=== PATIENT | female | born 1980 | race Caucasian/White ===

== ENCOUNTER 2018-02-05 20:18 | Emergency (ER) | payer OTHER ==
[~2018-02-05] VITALS: Ht 162.6 cm; Wt 65.8 kg
[~2018-02-05 20:18] MED LIST: AZIT250 PO; BUSP10 PO; CITA20 PO; CLON1 PO; Crutch1 EACH MISC; DIAZ5 PO; GABA300 PO; GRALISE1 EACH PO; HYDHCL25 PO; INDO50 PO; NORT10 PO; OXYACE5T PO; Percocet 5-3251 EACH PO; VENL75ER PO
[2018-02-05] MEDS ORDERED: CYCL10 PO (21:26)
== END 2018-02-05 21:40 | disposition home or self-care (01) ==
LOC: ER 20:18
DX: M53.3 Sacrococcygeal disorders, not elsewhere classified (principal); F17.210 Nicotine dependence, cigarettes, uncomplicated; Z88.1 Allergy status to other antibiotic agents; Z88.5 Allergy status to narcotic agent
CPT/HCPCS: 73502; 96372; 99283; J1885

== ENCOUNTER → 2018-03-09 | Outpatient (CLI) | payer OTHER ==
[~2018-03-09] MED LIST changes: +CYCL10 PO
[2018-04-02 14:51] LABS: CHLAMYDIA TRACHOMATIS, NAA Negative (Negative); NEISSERIA GONORRHOEAE, NAA Negative (Negative)
== END ==
LOC: LAB 15:21 → LAB SHORT 15:21
PROVIDERS: Obstetrics & Gynecology
DX: Z01.419 Encounter for gynecological examination (general) (routine) without abnormal findings (principal); Z11.3 Encounter for screening for infections with a predominantly sexual mode of transmission
CPT/HCPCS: 87491; 87591; 87624; G0123

== ENCOUNTER 2019-01-08 01:37 | Inpatient (IN) | payer BC, OTHER ==
[~2019-01-08] VITALS: Ht 160 cm; Wt 72.0 kg
[2019-01-08] MEDS ORDERED: MELA3 PO (02:09)
[2019-01-08 02:16] LABS: BASOPHILS ABSOLUTE AUTO 0.05 K/mm3 (0.00-0.23); BASOPHILS PERCENT AUTO 0 % (0-2); EOSINOPHILS ABSOLUTE AUTO 0.12 K/mm3 (0.00-0.68); EOSINOPHILS PERCENT AUTO 1 % (0-6); Hematocrit 44.1 % (33.0-51.0); Hemoglobin 14.9 g/dL (11.5-16.0); IMMATURE GRAN ABSOLUTE AUTO 0.07 K/mm3 (0.00-0.10); IMMATURE GRAN PERCENT AUTO 0 % (0-1); LYMPHOCYTES ABSOLUTE AUTO 2.41 K/mm3 (0.84-5.20); LYMPHOCYTES PERCENT AUTO 12 % (21-46); MONOCYTES ABSOLUTE AUTO 0.63 K/mm3 (0.16-1.47); MONOCYTES PERCENT AUTO 3 % (4-13); Mean Corpuscular HGB 33.3 pg (26.0-34.0); Mean Corpuscular HGB Conc 33.8 g/dL (31.5-36.5); Mean Corpuscular Volume 99 fL (80-100); Mean Platelet Volume 10.3 fL (9.1-12.4); NEUTROPHILS ABSOLUTE AUTO 16.18 K/mm3 (1.96-9.15); NEUTROPHILS PERCENT AUTO 83 % (41-73); Platelet Count 372 K/mm3 (150-400); RDW Coefficient Variation 11.7 % (11.7-14.2); RDW Standard Deviation 43.1 fL (35.1-46.3); Red Blood Cell Count 4.47 M/mm3 (3.80-5.20); White Blood Cell Count 19.46 K/mm3 (4.00-11.30)
[2019-01-08 02:32] LABS: Alanine Aminotransfer (ALT/SGP 18 U/L (12-78); Albumin, Blood 4.1 g/dL (3.4-5.0); Albumin/Globulin Ratio 1.2 (0.8-1.8); Alk Phos 82 U/L (50-136); Anion Gap 6 mmol/L (6-16); Aspartate Aminotrans (AST/SGOT 13 U/L (12-37); Bilirubin, Total 0.2 mg/dL (0.1-1.0); Blood Urea Nitrogen 11 mg/dL (8-24); Bun/Creatinine Ratio 14.2 (12.0-20.0); CO2, Blood 27 mmol/L (21-32); Chloride, Blood 108 mmol/L (98-108); Creatinine, Blood 0.78 mg/dL (0.40-1.00); Globulin, Blood 3.4 g/dL (2.2-4.0); Glomerular Filtration Rate >60 (60-); Glucose, Blood 123 mg/dL (70-99); Potassium, Blood 4.3 mmol/L (3.5-5.5); Sodium, Blood 141 mmol/L (136-145); Total Protein, Blood 7.5 g/dL (6.4-8.2)
[2019-01-08 03:06] LABS: Source, Urine Clean Catch
[2019-01-08 03:08] LABS: Bilirubin, Urine Neg (Neg); Blood, Urine Neg (Neg); Glucose Qualitative, Urine Neg (Neg); Ketones, Urine 1+ (Neg); Leukocyte Esterase, Urine 1+ (Neg); Nitrite, Urine Neg (Neg); Protein, Urine 1+ (Neg); Urobilinogen, Urine 1+ (Normal); pH, Urine 6.5 (5.0-8.0)
[2019-01-08 03:16] LABS: Appearance, Urine Hazy (Clear); Color, Urine Yellow (P-Yellow)
[2019-01-08 03:17] LABS: Amorphous Mod (0-Heavy); Bacteria Few /hpf; Mucus Light (0-Heavy); Red Blood Cells, Urine Not Seen /hpf (0-2); Squamous Epithelial Cells Rare /hpf (Few); White Blood Cells, Urine 0-2 /hpf (0-5)
--- NOTE | 2019-01-08 07:32 | NUR ---
PT ADMITTED FROM ER FOR SBO. A&O X4. VS WNL UPON ARRIVAL. PT REPORTS ADEQUATE PAIN CONTROL AT THIS TIME. DENIES N/V. IND IN ROOM. INSTRUCTED ON HOW TO USE CALL LIGHT. WILL CTM AND GIVE REPORT TO ONCOMING DAY RN.
[2019-01-08] MEDS ORDERED: THRIVE PO (08:47)
[2019-01-08] MEDS ORDERED: [UNRECOGNIZED DRUG - OTHER] TOP (08:48)
--- NOTE | 2019-01-08 15:25 | NUR ---
PT REPORTS WILL WEAR PAS AT NIGHT, REPORTS UP FREQUENTLY T/O DAYTIME.
--- NOTE | 2019-01-08 16:58 | NUR ---
SHIFT SUMMARY PT TOLERATING C.L. DIET. "I FEEL MY TUMMY RUMBLING A LOT". PT REPORTS PASSING GAS THIS AFTERNOON. PT UP IND. FAMILY IN/OUT OF ROOM. PT AMBULATING IN HALLWAYS TODAY. DISCUSSED SMOKING CESSATION.
--- NOTE | 2019-01-09 04:13 | NUR ---
SHIFT SUMMARY: PT HAS DONE WELL THIS SHIFT. C/O OCC PAIN. GIVEN 25 MCG OF FENTANYL PER EMAR. JUSTINE CLR LIQ DIET. DENIES N/V. REPORTS PASSING SOME GAS. NO BM. PT AMBULATING FREQUENTLY. OUTSIDE TO SMOKE SEVERAL TIMES. EDUCATED ON AFFECTS OF SMOKING. AT BEDSIDE.
[2019-01-09 05:41] LABS: BASOPHILS ABSOLUTE AUTO 0.04 K/mm3 (0.00-0.23); BASOPHILS PERCENT AUTO 1 % (0-2); EOSINOPHILS ABSOLUTE AUTO 0.26 K/mm3 (0.00-0.68); EOSINOPHILS PERCENT AUTO 3 % (0-6); Hematocrit 34.9 % (33.0-51.0); Hemoglobin 11.7 g/dL (11.5-16.0); IMMATURE GRAN ABSOLUTE AUTO 0.01 K/mm3 (0.00-0.10); IMMATURE GRAN PERCENT AUTO 0 % (0-1); LYMPHOCYTES ABSOLUTE AUTO 4.53 K/mm3 (0.84-5.20); LYMPHOCYTES PERCENT AUTO 57 % (21-46); MONOCYTES ABSOLUTE AUTO 0.56 K/mm3 (0.16-1.47); MONOCYTES PERCENT AUTO 7 % (4-13); Mean Corpuscular HGB 33.3 pg (26.0-34.0); Mean Corpuscular HGB Conc 33.5 g/dL (31.5-36.5); Mean Corpuscular Volume 99 fL (80-100); Mean Platelet Volume 10.2 fL (9.1-12.4); NEUTROPHILS PERCENT AUTO 33 % (41-73); Platelet Count 277 K/mm3 (150-400); RDW Coefficient Variation 12.1 % (11.7-14.2); RDW Standard Deviation 44.1 fL (35.1-46.3); Red Blood Cell Count 3.51 M/mm3 (3.80-5.20)
[2019-01-09 06:04] LABS: Anion Gap 1 mmol/L (6-16); Blood Urea Nitrogen 7 mg/dL (8-24); Bun/Creatinine Ratio 10.4 (12.0-20.0); CO2, Blood 27 mmol/L (21-32); Calcium, Blood 8.1 mg/dL (8.5-10.1); Chloride, Blood 116 mmol/L (98-108); Creatinine, Blood 0.67 mg/dL (0.40-1.00); Glomerular Filtration Rate >60 (60-); Glucose, Blood 75 mg/dL (70-99); Potassium, Blood 4.4 mmol/L (3.5-5.5); Sodium, Blood 144 mmol/L (136-145)
--- NOTE | 2019-01-09 12:12 | NUR ---
DR MORALES BEEN TO SEE PT. DISCUSSED PT'S STATUS.
--- NOTE | 2019-01-09 19:11 | NUR ---
SHIFT SUMMARY PT TOLERATING C.L. PT BEEN UP IND. WALKING FREQUENTLY. PT REPORTS "MY STOMACH FEELS FULL". PT BEEN MED UPON REQ. PT BEEN ASSISTED WITH ADL'S PRN. PT FAMILY IN/OUT OF ROOM.
--- NOTE | 2019-01-10 07:22 | NUR ---
SHIFT SUMMARY: MILD INCREASE IN ABD DISTENTION NOTED. CRAMPING PAIN REPORTED. MANAGED WITH FENTANYL PER EMAR. JUSTINE 50 MCG. PT REPORTS PASSING VERY SML AMTS OF GAS. NO BM OVER NIGHT. DENIES N/V. MINIMAL PO INTAKE. AMBULATING FREQ. HYPERACTIVE BT IN ALL QUADS.
--- NOTE | 2019-01-10 19:52 | NUR ---
SHIFT SUMMARY PAIN HAS BEEN MANAGED WITH IV PAIN MEDICATION THIS SHIFT. PT HAS BEEN AMBULATING FREQUENTLY. SHE IS INDEPENDENT IN THE ROOM. PT DENIES PASSING FLATUS THIS SHIFT. EMESIS X1. REPORT GIVEN TO MELQUIADES ELLIS.
--- NOTE | 2019-01-11 05:17 | NUR ---
NO SIG CHANGES DURING NIGHT. HAS BEEN TOLERATING PO, DENIES ANY N/V. NO FLATUS OR STOOL BUT BT+. PT HAS BEEN UP AMBULATING IN HALLWAYS. PAIN IS BETTER MANAGED WITH IV DILAUDID. POSSIBLE DC HOME TODAY.
--- NOTE | 2019-01-11 10:41 | NUR ---
PT C/O CONTINUED GENERALIZED ABDOMINAL PAIN/CRAMPING AND PELVIC PAIN. STATES THAT DILAUDID SEEMS TO "WORK THE BEST AND LASTS LONGER". INDEPENDENTLY AMBULATING IN HALLWAY AND OUT TO SMOKE. TOLERATING SMALL AMTS FULL LIQUID.
--- NOTE | 2019-01-12 05:22 | NUR ---
NO SIG CHANGES DURING NIGHT. WAS MEDICATED ONLY ONCE FOR PAIN AND ZOFRAN PO WAS ONLY GIVEN TO PREVENT NAUSEA FROM MIRALAX. PLAN FOR SMALL BOWEL FOLLOW THROUGH TODAY. PT IS HOPEFUL TO BE ABLE TO GO HOME.
--- NOTE | 2019-01-12 08:59 | NUR ---
radiology to radiology per wheelchair
--- NOTE | 2019-01-12 10:47 | NUR ---
PT RETURNS FROM IMAGING. GOES OUT FOR A WALK.
--- NOTE | 2019-01-12 11:05 | NUR ---
return to room returned from radiology
[2019-01-12] MEDS ORDERED: MIRALAX119 GM PO (17:29)
--- NOTE | 2019-01-12 18:07 | NUR ---
discharge discharge instructions reviewed with patient and patient questions answered. patient dischared home
--- NOTE | 2019-01-12 18:07 | NUR ---
stools patient had liquid pink tinged stool, spoke with dr whelan regarding stool color
== END 2019-01-12 18:31 | disposition home or self-care (01) | DRG 390 ==
LOC: ER 01:37 → ERHOLD 05:49 → SURS 05:49
PROVIDERS: Emergency Medicine; ADMIT Surgery
DX: K56.609 Unspecified intestinal obstruction, unspecified as to partial versus complete obstruction (principal); G43.909 Migraine, unspecified, not intractable, without status migrainosus; F17.210 Nicotine dependence, cigarettes, uncomplicated; F41.8 Other specified anxiety disorders; K59.09 Other constipation
CPT/HCPCS: 36415; 74177; 74250; 80048; 80053; 81001; 81025; 83690; 85025; 87086; 94762; 96361; 96374-59; 96375; 96376; 99285-25; J1170; J1885; J2270; J2405; J3010; J7030; J7120; Q9967

== ENCOUNTER 2019-03-28 19:12 | Emergency (ER) | payer BC, OTHER ==
[~2019-03-28] VITALS: Ht 162.6 cm; Wt 68.0 kg
[~2019-03-28 19:12] MED LIST changes: +MELA3 PO; +MIRALAX119 GM PO; +THRIVE PO; +[UNRECOGNIZED DRUG - OTHER] TOP
[2019-03-31] MEDS ORDERED: IBU800 MG PO (08:21)
[2019-03-31] MEDS ORDERED: MELATONIN10 M2 PO (08:21)
[2019-03-31] MEDS ORDERED: BUSP10 PO (08:21)
[2019-03-31] MEDS ORDERED: MIRALAX17 GM PO (08:21)
[2019-03-31] MEDS ORDERED: VOLTAREN100 GM TOP (08:22)
[2019-03-31] MEDS ORDERED: MIRENA1 EACH VAG (08:22)
[2019-03-31] MEDS ORDERED: Motion Sickness25 M1 PO (08:22)
[2019-06-23] MEDS ORDERED: Celexa10 MG PO (09:54)
[2019-06-23] MEDS ORDERED: HORIZANT300 MG PO (09:54)
== END 2019-03-28 22:50 | disposition home or self-care (01) ==
LOC: ER 19:12
DX: M79.662 Pain in left lower leg (principal); Z88.0 Allergy status to penicillin; Z88.8 Allergy status to other drugs, medicaments and biological substances; Z79.899 Other long term (current) drug therapy; G43.909 Migraine, unspecified, not intractable, without status migrainosus; F17.210 Nicotine dependence, cigarettes, uncomplicated
CPT/HCPCS: 73590; 93971; 96372-59; 96374; 99284-25; J1170; J1885

== ENCOUNTER 2019-04-07 08:35 | Day surgery (SDC) | payer BC, OTHER ==
[~2019-04-07] VITALS: Ht 162.6 cm; Wt 68.0 kg
[~2019-04-07 08:35] MED LIST changes: +IBU800 MG PO; +MELATONIN10 M2 PO; +MIRALAX17 GM PO; +MIRENA1 EACH VAG; +Motion Sickness25 M1 PO; +VOLTAREN100 GM TOP
[2019-06-23] MEDS ORDERED: HORIZANT300 MG PO (09:54)
[2019-06-23] MEDS ORDERED: Celexa10 MG PO (09:54)
== END 2019-04-07 10:40 | disposition home or self-care (01) ==
LOC: ORSCSDS 08:35
PROVIDERS: Surgery
PROC: 0DJD8ZZ Inspection of Lower Intestinal Tract, Via Natural or Artificial Opening Endoscopic (ICD-10-PCS; principal; 2019-04-07 09:45)
DX: Z12.11 Encounter for screening for malignant neoplasm of colon (principal); Z80.0 Family history of malignant neoplasm of digestive organs; F41.8 Other specified anxiety disorders; F17.210 Nicotine dependence, cigarettes, uncomplicated; Z79.899 Other long term (current) drug therapy
CPT/HCPCS: J2704; J7120

== ENCOUNTER → 2019-06-09 | Outpatient (CLI) | payer BC ==
[~2019-06-09] MED LIST changes: +Celexa10 MG PO; +HORIZANT300 MG PO; +Ultram50 MG PO
[2019-06-10 16:06] LABS: HPV 16 Negative (Negative); HPV 18 Negative (Negative); HPV OTHER HR TYPES Negative (Negative)
== END | disposition home or self-care (01) ==
LOC: LAB 12:21 → LAB SHORT 12:21
PROVIDERS: Obstetrics & Gynecology
DX: Z01.419 Encounter for gynecological examination (general) (routine) without abnormal findings (principal)
CPT/HCPCS: 87624; G0123

== ENCOUNTER 2019-07-01 08:30 | Day surgery (SDC) | payer BC, OTHER ==
[~2019-07-01] VITALS: Ht 162.6 cm; Wt 69.8 kg
[~2019-07-01 08:30] MED LIST changes: -Ultram50 MG PO
== END 2019-07-01 13:58 | disposition home or self-care (01) ==
LOC: ORSCSDS 08:30
PROVIDERS: Orthopaedic Surgery
PROC: 0QPH04Z Removal of Internal Fixation Device from Left Tibia, Open Approach (ICD-10-PCS; principal; 2019-07-01 10:00)
DX: T84.84XA Pain due to internal orthopedic prosthetic devices, implants and grafts, initial encounter (principal); Z96.9 Presence of functional implant, unspecified; F17.210 Nicotine dependence, cigarettes, uncomplicated; Z79.899 Other long term (current) drug therapy
CPT/HCPCS: A9270-GY; C1769; J1100; J1885; J2250; J2370; J2405; J2704; J2765; J3010; J3370; J7120

== ENCOUNTER 2019-07-16 14:24 | Emergency (ER) | payer BC, OTHER ==
[~2019-07-16] VITALS: Ht 165.1 cm; Wt 68.0 kg
[2019-07-16] MEDS ORDERED: Ultram50 MG PO (15:55)
== END 2019-07-16 15:58 | disposition home or self-care (01) ==
LOC: ER 14:24
DX: M96.840 Postprocedural hematoma of a musculoskeletal structure following a musculoskeletal system procedure (principal); F17.210 Nicotine dependence, cigarettes, uncomplicated; Z88.1 Allergy status to other antibiotic agents; Z88.8 Allergy status to other drugs, medicaments and biological substances; Z79.899 Other long term (current) drug therapy
CPT/HCPCS: 93971; 99283-25

== ENCOUNTER → 2020-06-21 | Outpatient (CLI) | payer BC, OTHER ==
[~2020-06-21] MED LIST changes: +Ultram50 MG PO
== END | disposition home or self-care (01) ==
LOC: LAB SHORT 13:34 → PLD 13:34
DX: Z01.419 Encounter for gynecological examination (general) (routine) without abnormal findings (principal); N92.1 Excessive and frequent menstruation with irregular cycle
CPT/HCPCS: 88305

== ENCOUNTER → 2020-06-21 | Outpatient (CLI) | payer BC, OTHER ==
[2020-06-22 14:10] LABS: HPV 16 Negative (Negative); HPV 18 Negative (Negative); HPV OTHER HR TYPES Negative (Negative)
== END ==
LOC: LAB 11:00 → LAB SHORT 11:00
PROVIDERS: Obstetrics & Gynecology
DX: Z01.419 Encounter for gynecological examination (general) (routine) without abnormal findings (principal)
CPT/HCPCS: 87624; G0123

== ENCOUNTER → 2021-05-12 | Outpatient (CLI) | payer BC, OTHER ==
[~2021-05-12] MED LIST changes: +CODACE30 PO; +DOCU100 PO; +IBUP800 PO; +PSEU120ER PO; +ROXICODONE5 MG PO; +SHAROBEL0.35 MG PO
[2021-05-14 17:36] LABS: CORONAVIRUS (COVID19) CSH-NRL Negative (Negative)
== END ==
LOC: LAB SHORT 15:30 → LAB 15:30
PROVIDERS: Physician Assistant Medical
DX: Z20.822 Contact with and (suspected) exposure to COVID-19 (principal); Z88.8 Allergy status to other drugs, medicaments and biological substances; Z88.1 Allergy status to other antibiotic agents; Z88.2 Allergy status to sulfonamides
CPT/HCPCS: U0003

== ENCOUNTER 2022-05-12 10:38 | Day surgery (SDC) | payer BC ==
[~2022-05-12] VITALS: Ht 165.1 cm; Wt 80.0 kg
[2022-05-12] MEDS ORDERED: CYMBALTA20 M1 PO (10:56)
[2022-05-12] MEDS ORDERED: ESTRADIOL0.5 MG PO (11:00)
[2022-05-12] MEDS ORDERED: TRAM50 PO (11:01)
[2022-05-12] MEDS ORDERED: GABA100 PO (11:01)
--- NOTE | 2022-05-12 12:35 | NUR ---
1105 History, Chart, Medications and Allergies reviewed before start of procedure.Patient confirms NPO status and agrees with scheduled surgery. Lungs clear T/O to Auscultation. Pre-Op teaching done. Pt verbalizes understanding.
--- NOTE | 2022-05-12 15:20 | NUR ---
Discharge instructions reviewed with patient. Patient verbalizes understanding. Copy given to patient to take home. Patient States Post-Procedure ride home has been arranged. Dressing to procedure site clean, dry, intact with no visible drainage, swelling, erythema or bruising noted.
== END 2022-05-13 23:49 | disposition home or self-care (01) ==
LOC: ORSCMMR 10:38 → ORD 12:00 → ORSCMMR 05-13 23:49
PROVIDERS: Orthopaedic Surgery
PROC: 01N40ZZ Release Ulnar Nerve, Open Approach (ICD-10-PCS; principal; 2022-05-12 12:00)
PROC: 01N50ZZ Release Median Nerve, Open Approach (ICD-10-PCS; principal; 2022-05-12 12:00)
DX: G56.03 Carpal tunnel syndrome, bilateral upper limbs (principal); G56.21 Lesion of ulnar nerve, right upper limb; Z79.899 Other long term (current) drug therapy
CPT/HCPCS: A9270; J0690; J1100; J1885; J2250; J2405; J2704; J2765; J3010; J7120

== ENCOUNTER → 2023-06-26 | Outpatient (CLI) | payer SELFPAY ==
[~2023-06-26] MED LIST changes: +CYMBALTA20 M1 PO; +ESTRADIOL0.5 MG PO; +GABA100 PO; +TRAM50 PO
[2023-06-26 17:51] LABS: BASOPHILS ABSOLUTE AUTO 0.07 K/mm3 (0.00-0.23); BASOPHILS PERCENT AUTO 1 % (0-2); EOSINOPHILS PERCENT AUTO 2 % (0-6); Hematocrit 40.9 % (33.0-51.0); Hemoglobin 14.1 g/dL (11.5-16.0); IMMATURE GRAN ABSOLUTE AUTO 0.01 K/mm3 (0.00-0.10); IMMATURE GRAN PERCENT AUTO 0 % (0-1); LYMPHOCYTES ABSOLUTE AUTO 3.21 K/mm3 (0.84-5.20); LYMPHOCYTES PERCENT AUTO 39 % (21-46); MONOCYTES PERCENT AUTO 7 % (4-13); Mean Corpuscular HGB Conc 34.5 g/dL (31.5-36.5); Mean Corpuscular Volume 96 fL (80-100); Mean Platelet Volume 10.8 fL (9.1-12.4); NEUTROPHILS ABSOLUTE AUTO 4.09 K/mm3 (1.96-9.15); NEUTROPHILS PERCENT AUTO 50 % (41-73); Platelet Count 392 K/mm3 (150-400); RDW Coefficient Variation 12.4 % (11.7-14.2); RDW Standard Deviation 43.1 fL (35.1-46.3); Red Blood Cell Count 4.27 M/mm3 (3.80-5.20); White Blood Cell Count 8.18 K/mm3 (4.00-11.30)
[2023-06-26 18:02] LABS: Albumin, Blood 4.5 g/dL (3.4-5.0); Albumin/Globulin Ratio 1.2 (0.8-1.8); Bilirubin, Total 0.4 mg/dL (0.1-1.0); Bun/Creatinine Ratio 7.6 (12.0-20.0); Calcium, Blood 9.7 mg/dL (8.5-10.1); Creatinine, Blood 0.92 mg/dL (0.40-1.00); Globulin, Blood 3.6 g/dL (2.2-4.0); Potassium, Blood 3.4 mmol/L (3.5-5.5); Thyroid Stimulating Hormone 1.6 uIU/mL (0.360-4.800); Total Protein, Blood 8.1 g/dL (6.4-8.2)
== END | disposition home or self-care (01) ==
LOC: LAB SHORT 17:04 → LAB 17:04
PROVIDERS: Advanced Practice Midwife
DX: R53.83 Other fatigue (principal)
CPT/HCPCS: 80053; 82306; 83036; 84443; 85025

== ENCOUNTER → 2023-08-19 | Outpatient (CLI) | payer OTHER ==
[2023-08-19 11:10] LABS: Bun/Creatinine Ratio 9.6 (12.0-20.0); Calcium, Blood 9.2 mg/dL (8.5-10.1); Creatinine, Blood 0.83 mg/dL (0.40-1.00); Potassium, Blood 4.2 mmol/L (3.5-5.5)
[2023-08-19 11:57] LABS: BASOPHILS ABSOLUTE AUTO 0.05 K/mm3 (0.00-0.23); BASOPHILS PERCENT AUTO 1 % (0-2); EOSINOPHILS ABSOLUTE AUTO 0.08 K/mm3 (0.00-0.68); EOSINOPHILS PERCENT AUTO 1 % (0-6); Hematocrit 40.7 % (33.0-51.0); IMMATURE GRAN ABSOLUTE AUTO 0.02 K/mm3 (0.00-0.10); IMMATURE GRAN PERCENT AUTO 0 % (0-1); LYMPHOCYTES ABSOLUTE AUTO 3.61 K/mm3 (0.84-5.20); LYMPHOCYTES PERCENT AUTO 39 % (21-46); MONOCYTES ABSOLUTE AUTO 0.41 K/mm3 (0.16-1.47); MONOCYTES PERCENT AUTO 4 % (4-13); Mean Corpuscular HGB 32.8 pg (26.0-34.0); Mean Corpuscular HGB Conc 34.4 g/dL (31.5-36.5); Mean Corpuscular Volume 95 fL (80-100); Mean Platelet Volume 10.2 fL (9.1-12.4); NEUTROPHILS ABSOLUTE AUTO 5.13 K/mm3 (1.96-9.15); NEUTROPHILS PERCENT AUTO 55 % (41-73); Platelet Count 402 K/mm3 (150-400); RDW Coefficient Variation 12.6 % (11.7-14.2); Red Blood Cell Count 4.27 M/mm3 (3.80-5.20)
== END | disposition home or self-care (01) ==
LOC: LAB SHORT 10:50 → LAB 10:50
PROVIDERS: Physician Assistant Surgical
DX: N30.00 Acute cystitis without hematuria (principal); R10.31 Right lower quadrant pain
CPT/HCPCS: 80048; 85025; 87086

== ENCOUNTER 2025-01-24 13:01 | Day surgery (SDC) | payer OTHER ==
[~2025-01-24] VITALS: Ht 165.1 cm; Wt 79.8 kg
[~2025-01-24 13:01] MED LIST changes: +Lactated Ringer's 1,000 ML IV ONE; +propofoL 40 ML IV ONE
[2025-01-24] MEDS ORDERED: FLUO10 (13:17)
[2025-01-24] MEDS ORDERED: Lactated Ringer's 1,000 ML IV ONE (14:09)
[2025-01-24] MEDS ORDERED: propofoL 20 ML IV ONE (15:07)
[2025-01-24] MEDS ORDERED: Ondansetron HCl 2 MG / ML 2ML Vial ONE (15:19)
--- NOTE | 2025-01-24 15:25 | NUR ---
01/24/25 1525 Patricia West PT. VERBALIZE HE HEMMORHOIDS WERE BOTHERING HER FROM THE PREP
--- NOTE | 2025-01-24 15:55 | NUR ---
01/24/25 1555 BrettPatricia S PT. STARTED TO C/O NAUSEA WHEN MOVING BED FROM ENDO ROOM TO DC. PT. WAS GIVEN ZOFRAN PER DR. DIAS. PT. HAD VERBALIZED THAT SHE WASN'T SURE IF SHE WAS NAUSEATED FROM THE PROCEDURE OR FROM MOTION SICKNESS, THE BED MOVING. PT. HAD ALSO C/O FEELING "FULL", "BLOATED." DR. MORALES IN ROOM & HER ALSO TOLD PT. THAT THE AIR IN THE COLON CAN ALSO CAUSE SOME NAUSEA. PT. INSTRUCTED TO PASS OUT AIR IF SHE FELT THE NEED BUT EVENTUALLY IT WOULD ABSORB. AT 1526 PT. HAD VERBALIZED THAT THE NAUSEA WAS GOING AWAY. PT. DRINKING SIPS OF WATER & SIPS OF APPLE JUICE. 1532 PT. HAD VERBALIZED THAT SHE DIDN'T FEEL NAUSEA WHEN SHE MOVED & THAT SHE WAS READY TO GO HOME. V.S.S.
[2025-01-24 16:05] VITALS: BP 108/66
== END 2025-01-24 15:40 | disposition home or self-care (01) ==
LOC: ORSCSDS 13:01
PROVIDERS: Surgery
PROC: 0DBH8ZX Excision of Cecum, Via Natural or Artificial Opening Endoscopic, Diagnostic (ICD-10-PCS; principal; 2025-01-24 14:15)
DX: Z12.11 Encounter for screening for malignant neoplasm of colon (principal); Z80.0 Family history of malignant neoplasm of digestive organs; D12.0 Benign neoplasm of cecum; K64.8 Other hemorrhoids; K64.4 Residual hemorrhoidal skin tags; F41.9 Anxiety disorder, unspecified; F32.A Depression, unspecified; Z79.899 Other long term (current) drug therapy; Z87.891 Personal history of nicotine dependence
CPT/HCPCS: 88305; J2405; J2704; J7120

== ENCOUNTER → 2025-09-28 | Outpatient (CLI) | payer OTHER ==
[~2025-09-28] MED LIST changes: +FLUO10; -Lactated Ringer's 1,000 ML IV ONE; -propofoL 40 ML IV ONE
[2025-09-28 15:16] LABS: WBC Count, Synovial Fluid 465 /mm3 (0-180)
[2025-09-28 16:16] LABS: RBC Count, Synovial Fluid 68 /mm3 (0-0)
[2025-09-28 17:02] LABS: Appearance, Synovial Fluid Hazy (Clear); Color, Synovial Fluid Pale Yellow (None-P Yel)
[2025-09-28 17:37] LABS: Lymphs, Synovial Fluid 23 % (0-15); Monocytes/Macrophages, Synovia 76 % (0-65); Neutrophils, Synovial Fluid 1 % (0-24)
== END ==
LOC: LAB 14:00 → LAB SHORT 14:00
PROVIDERS: Orthopaedic Surgery
DX: M25.461 Effusion, right knee (principal); M25.561 Pain in right knee
CPT/HCPCS: 87070; 87075; 87102; 87205; 89051; 89060